=== PATIENT | female | born 2000 | race Caucasian/White ===

== ENCOUNTER 2021-01-02 15:12 | Outpatient (CLI) | payer OTHER ==
[~2021-01-02] VITALS: Ht 160 cm; Wt 67.5 kg
[2021-01-02 15:08] VITALS: BP 125/63
[2021-01-02 15:15] VITALS: BP 125/63
--- NOTE | 2021-01-03 07:41 | Physician Query-Final Dx ---
JAIRO GRACE 01/03/21 0741: Clinic Account Progress/Dx Physician Query: Please give diagnosis Please include # weeks gestation Date of Service Jan 02, 2021 at 15:12 MONA GALLAGHER MD 01/05/21 1812: Clinic Account Progress/Dx DIAGNOSIS: Diagnosis 1. IUP in 3rd trimester non labor 2. Uterine irritability JAIRO GRACE Jan 03, 2021 07:41 MONA GALLAGHER MD Jan 05, 2021 18:12
== END 2021-01-02 15:45 | disposition home or self-care (01) ==
LOC: WSo 15:12 → LDRP 15:13 → WSo 15:45
PROVIDERS: ATTEND Family Medicine
DX: O60.03 Preterm labor without delivery, third trimester (principal); O62.4 Hypertonic, incoordinate, and prolonged uterine contractions; Z3A.00 Weeks of gestation of pregnancy not specified
CPT/HCPCS: 99213

== ENCOUNTER 2021-01-13 04:52 | Outpatient (CLI) | payer SELFPAY ==
[~2021-01-13] VITALS: Ht 160 cm; Wt 68.1 kg
[2021-01-13] MEDS ORDERED: PREN-142 PO (05:00)
[2021-01-13 05:10] VITALS: BP 122/59
[2021-01-13 05:18] LABS: BILIRUBIN,URINE NEGATIVE (NEGATIVE); COLOR,URINE YELLOW; GLUCOSE, URINE (UA) NEGATIVE (NEGATIVE); KETONES,URINE NEGATIVE (NEGATIVE); LEUKOCYTE ESTERASE ,URINE TRACE (NEGATIVE); NITRITE,URINE POSITIVE (NEGATIVE); PH,URINE 6.5 (5-9); PROTEIN,URINE 3+ (NEGATIVE)
[2021-01-13 05:34] VITALS: BP 122/59
[2021-01-13 05:36] LABS: CLARITY,URINE CLOUDY
[2021-01-13 05:37] LABS: BACTERIA,URINE MODERATE /HPF; WBC,URINE TNTC /HPF
[2021-01-13] MEDS ORDERED: cefTRIAXone 1,000 MG VIAL ONE (05:52)
[2021-01-13] MEDS ORDERED: WATER (STERILE) FOR INJECTION 10 ML ONE (05:55)
[2021-01-13] MEDS ORDERED: CEFD300C3 PO (05:58)
[2021-01-13] MEDS ORDERED: LACTATED RINGERS 1,000 ML IV SCH (06:00)
[2021-01-13] MEDS ORDERED: cefTRIAXone 1,000 MG in WATER (STERILE) FOR INJECTION 10 ML IV ONE (06:00)
[2021-01-13 07:01] VITALS: BP 122/59
--- NOTE | 2021-01-14 07:46 | Physician Query-Final Dx ---
JAIRO GRACE 01/14/21 0746: Clinic Account Progress/Dx Physician Query: Please give diagnosis Please include # weeks gestation Date of Service Jan 13, 2021 at 04:52 MORGAN CASILLAS MD 01/14/21 2215: Clinic Account Progress/Dx DIAGNOSIS: Diagnosis Third trimester 35 week gestation Abdominal pain in JAIRO GRACE Jan 14, 2021 07:46 MORGAN CASILLAS MD Jan 14, 2021 22:15
== END 2021-01-13 07:05 ==
LOC: WSo 04:52 → LDRP 04:52 → WSo 07:05
PROVIDERS: ATTEND Family Medicine
DX: O62.9 Abnormality of forces of labor, unspecified (principal); O26.893 Other specified pregnancy related conditions, third trimester; Z3A.35 35 weeks gestation of pregnancy
CPT/HCPCS: 81000; 87088; 96361; 96374; G0463; 99214

== ENCOUNTER 2021-02-16 13:00 | Inpatient (IN) | payer OTHER ==
[~2021-02-16] VITALS: Ht 160 cm; Wt 72.9 kg
[~2021-02-16 13:00] MED LIST: CEFD300C3 PO; PREN-142 PO
[2021-02-16] MEDS ORDERED: MINERAL OIL CONCENTRATE 99.9% 15 ML UDC TOP PRN (20:15)
[2021-02-16] MEDS ORDERED: ZOLPIDEM 5 MG (AMBIEN) TAB PO ONE (20:15)
[2021-02-16] MEDS ORDERED: LACTATED RINGERS 1,000 ML IV SCH (20:15)
[2021-02-16] MEDS ORDERED: TERBUTALINE INJ 1 MG/ML (BRETHINE) AMP SC PRN (20:15)
[2021-02-16 20:20] VITALS: BP 111/69
[2021-02-16 20:56] LABS: BILIRUBIN,URINE NEGATIVE (NEGATIVE); CLARITY,URINE CLEAR; COLOR,URINE YELLOW; GLUCOSE, URINE (UA) NEGATIVE (NEGATIVE); KETONES,URINE NEGATIVE (NEGATIVE); LEUKOCYTE ESTERASE ,URINE NEGATIVE (NEGATIVE); NITRITE,URINE NEGATIVE (NEGATIVE); PROTEIN,URINE NEGATIVE (NEGATIVE)
[2021-02-16 20:57] LABS: BASOPHILS % (AUTO) 0 % (0-10); EOSINOPHILS % (AUTO) 0 % (0-10); HEMATOCRIT 31 % (35-52); HEMOGLOBIN 9.9 g/dL (11.5-16.0); LYMPHOCYTES # (AUTO) 2.4 10^3/uL (1.0-4.0); LYMPHOCYTES % (AUTO) 21 % (12-44); MEAN CORPUSCULAR HEMOGLOBIN 25 pg (25-34); MEAN CORPUSCULAR HGB CONC 32 g/dL (32-36); MEAN CORPUSCULAR VOLUME 78 fL (80-99); MEAN PLATELET VOLUME 12.2 fL (9.0-12.2); MONOCYTES # (AUTO) 0.6 10^3/uL (0.0-1.0); MONOCYTES % (AUTO) 5 % (0-12); NEUTROPHILS # (AUTO) 8.4 10^3/uL (1.8-7.8); NEUTROPHILS % (AUTO) 73 % (42-75); PLATELET COUNT 294 10^3/uL (130-400); WHITE BLOOD COUNT 11.6 10^3/uL (4.3-11.0)
[2021-02-16 21:00] VITALS: BP 111/69
[2021-02-16 21:03] LABS: AMORPHOUS SEDIMENT,UR MOD AMOR URATES /LPF; BACTERIA,URINE TRACE /HPF; WBC,URINE 0-2 /HPF
[2021-02-16] MEDS: D5 LR IV SOLUTION 1,000 ML IV SCH (21:19)
[2021-02-16] MEDS ORDERED: ZOLPIDEM 5 MG (AMBIEN) TAB ONE (22:40)
[2021-02-16 23:00] VITALS: BP 116/58
[2021-02-16 23:14] VITALS: BP 116/58
[2021-02-17] VITALS (85 sets, daily range): BP systolic 90–144; BP diastolic 49–103
[2021-02-17] MEDS: D5 LR IV SOLUTION 1,000 ML IV SCH ×3 (05:01→17:58)
[2021-02-17] MEDS ORDERED: fentaNYL 2 mcg/ml BUPIVA 0.125 100 ML ONE (07:55)
[2021-02-17] MEDS ORDERED: fentaNYL INJ 100 MCG/2 ML AMP ONE (08:22)
[2021-02-17] MEDS ORDERED: BUPIVACAINE 0.25% 30 ML (SENSORCAINE) VIAL ONE (08:22)
[2021-02-17] MEDS: fentaNYL 2 mcg/ml BUPIVA 0.125 100 ML IV SCH ×2 (08:43→18:16)
[2021-02-17] MEDS ORDERED: NALOXONE 0.4 MG/ML 1 ML (NARCAN) VIAL IV PRN (09:00)
[2021-02-17] MEDS ORDERED: LACTATED RINGERS 1,000 ML IV ONE (09:00)
[2021-02-17] MEDS ORDERED: CATHETER FLUSH 10 ML SYR IV PRN (09:00)
[2021-02-17] MEDS: OXYTOCIN PRE-MIX DRIP 500 ML IV SCH ×4 (09:17→21:53)
--- NOTE | 2021-02-17 13:33 | History & Physical-OB ---
OB - Chief Complaint & HPI Date/Time Date of Admission: Date of Admission: Feb 16, 2021 at 20:03 Date seen by a Provider: Feb 17, 2021 Time Seen by a Provider: 08:45 Chief Complaint/History OB-Reason for Admission/Chief: Induction of Labor Hx : 1 Expected Date of Delivery: Feb 13, 2021 Gestational Age in Weeks: 40 Gestational Age in Days: 3 Indication for induction: post dates Other O+, Ab neg, Rub Imm HIV/RPR/HepB/C NR Normal 1 hr GTT GBS neg Allergies and Home Medications Allergies Coded Allergies: No Known Drug Allergies (Unverified , 01/13/21) Home Medications Vit No.124/Iron/FA 1 Each Tablet, 1 EACH PO DAILY, (Reported) Last Action: Reviewed Patient Home Medication List Home Medication List Reviewed: Yes OB - History Hx of Present Care: Yes Ultrasounds: Normal mid trimester US Obstetrical Complications: None Medical Complications: None Obstetrical History Hx : 1 Number of Living Children: 0 Patient Past Medical History N/A Social History/Family History 2nd Hand Smoke Exposure: No Immunizations Tetanus Booster (TDap): Less than 5yrs RPR/VDRL: Negative GBS Status: Negative HBsAG: Negative OB - Admission Exam Physical Exam Vitals: Vital Signs 02/17/21 02/17/21 12:10 12:21 Temp 36.5 Pulse 88 Resp 18 B/P (MAP) 110/67 (81) Pulse Ox 100 O2 Delivery Room Air HEENT: NCAT Heart: Rhythm Normal Lungs: Clear Abdomen: Gravid Cervical Dilatation: 4cm Effacement: 100% Station: -2 Membranes: Intact Heart Rate: 130's Accelerations: Accelerations Present Decelerations: Variable Decelerations Short Term Variability: Present Mcc Variability: Average (6-25) Contractions on Admission: < 5 Minutes Apart Intensity: Firm Hardin Scoring Tool (Modified) Dilation (cm): 1-2cm (1) Effacement (%): 51-79% (2) Descent/Station: -2 (1) Cervix Consistency: Medium(1) Cervix Position: Middle/Mid-Position (1) Hardin Score: 6 Labs Laboratory Tests Test 02/16/21 20:35 Range/Units White Blood Count 11.6 H 4.3-11.0 10^3/uL Red Blood Count 3.96 3.80-5.11 10^6/uL Hemoglobin 9.9 L 11.5-16.0 g/dL Hematocrit 31 L 35-52 % Mean Corpuscular Volume 78 L 80-99 fL Mean Corpuscular Hemoglobin 25 25-34 pg Mean Corpuscular Hemoglobin Concent 32 32-36 g/dL Red Cell Distribution Width 15.1 H 10.0-14.5 % Platelet Count 294 130-400 10^3/uL Mean Platelet Volume 12.2 9.0-12.2 fL Immature Granulocyte % (Auto) 1 % Neutrophils (%) (Auto) 73 42-75 % Lymphocytes (%) (Auto) 21 12-44 % Monocytes (%) (Auto) 5 0-12 % Eosinophils (%) (Auto) 0 0-10 % Basophils (%) (Auto) 0 0-10 % Neutrophils # (Auto) 8.4 H 1.8-7.8 10^3/uL Lymphocytes # (Auto) 2.4 1.0-4.0 10^3/uL Monocytes # (Auto) 0.6 0.0-1.0 10^3/uL Eosinophils # (Auto) 0.0 0.0-0.3 10^3/uL Basophils # (Auto) 0.0 0.0-0.1 10^3/uL Immature Granulocyte # (Auto) 0.1 0.0-0.1 10^3/uL Urine Color YELLOW Urine Clarity CLEAR Urine pH 6.0 5-9 Urine Specific [place] >=1.030 1.016-1.022 Urine Protein NEGATIVE NEGATIVE Urine Glucose (UA) NEGATIVE NEGATIVE Urine Ketones NEGATIVE NEGATIVE Urine Nitrite NEGATIVE NEGATIVE Urine Bilirubin NEGATIVE NEGATIVE Urine Urobilinogen 0.2 < = 1.0 MG/DL Urine Leukocyte Esterase NEGATIVE NEGATIVE Urine RBC (Auto) NEGATIVE NEGATIVE Urine RBC NONE /HPF Urine WBC 0-2 /HPF Urine Squamous Epithelial Cells 5-10 /HPF Urine Crystals PRESENT H /LPF Urine Amorphous Sediment MOD MANN URATES H /LPF Urine Bacteria TRACE /HPF Urine Casts NONE /LPF Urine Mucus SMALL H /LPF Urine Culture Indicated NO OB - Assessment/Plan/Diagnosis Assessment Assessment: induction of labor Admission Dx Third Trimester 40 week gestation Admission Status: Inpatient Order (span 2 midnights) Reason for Inpatient Admission: Labor Plan Plan: Induction Other Plan 20 yo G1 @ 40.4 wga here for IOL for post dates Plan - Cytotec started last night - Epidural requested by patient, Anesthesia called - AROM clear 1232 - GBS neg - Continue with expectant management MORGAN CASILLAS MD Feb 17, 2021 13:33
[2021-02-17] MEDS ORDERED: ONDANSETRON 4 MG/2 ML (SDV) Z0FRAN IVP PRN (16:00)
[2021-02-17] MEDS ORDERED: ONDANSETRON 4 MG/2 ML (SDV) Z0FRAN ONE (16:45)
[2021-02-17] MEDS: CATHETER FLUSH 10 ML SYR IV SCH ×2 (17:24→21:28)
[2021-02-17] MEDS ORDERED: LIDOCAINE/EPI 2% 1:200,00 (XYLOCAINE) 20 ML VIAL ONE (19:57)
[2021-02-17] MEDS ORDERED: BENZOCAINE/MENTHOL (DERMOPLAST) 56 ML CAN TP PRN (22:00)
[2021-02-17] MEDS ORDERED: CATHETER FLUSH 10 ML SYR IV SCH (22:00)
[2021-02-17] MEDS ORDERED: WITCH HAZEL(TUCKS) 40 EA JAR TOP PRN (22:00)
[2021-02-17] MEDS ORDERED: MEASLES,MUMPS,RUBELLA 1 EA INJ SQ ONE (22:00)
--- NOTE | 2021-02-17 22:00 | OB Labor & Delivery Record ---
Vag Delivery Note Vag Delivery Note Date of Delivery: 02/17/21 Preoperative Diagnosis: Nan Bates is a (20 /Para 1 / , Gestational Age (wks)40.4 here for IOL for post dates Postoperative Diagnosis: Same Surgeon: MORGAN CASILLAS Cocoa Bean Roaster: None Anesthesia: Epidural Delivery Type: @ 2113 Findings: Viable female infant, apgars 8/9, weight 7#12, 3520 grams Lacerations: bilateral labial laceration Intact placenta with 3 vessel cord. No nuchal cord, body cord or shoulder dystocia Estimated Blood Loss: 100 ml Complications: None Condition: Stable Description of Procedure: The patient is a 20 year old female who presented for IOL. She was admitted and informed consent was obtained. Her labor course was unremarkable. She progressed to complete dilatation and began to push. She was then set up for delivery. The infant's head was delivered atraumatically in the KELLEY position. The shoulders and remainder of the infant's body were then delivered without difficulty. Upon delivery, the head was held below the level of the perineum and the mouth and nares were bulb suctioned. The cord was doubly clamped and cut by delivering provider and the was placed on maternal abdomen and attended to by the pediatric staff. An intact placenta with 3-vessel cord delivered via Joyce and there was found to be minimal bleeding.~ Vigorous fundal massage was performed and the fundus was found to be firm. IV oxytocin was given. Examination of the vagina and perineum revealed bilateral labial lacerations repaired in the usual fashion with 3-0 vicryl suture. Following the repair, sponge, instrument and needle counts were correct. Mom and baby were both in stable condition in the labor suite. Vitals - Labs Vital Signs - I&O Vital Signs Date Time Temp Pulse Resp B/P (MAP) Pulse Ox O2 Delivery O2 Flow Rate FiO2 02/17/21 20:30 98 18 103/55 (71) 100 Room Air 02/17/21 20:15 87 18 135/64 (87) 100 Room Air 02/17/21 20:00 71 18 114/55 (74) 100 Room Air 02/17/21 19:45 36.0 98 18 125/67 (86) 100 Room Air 02/17/21 19:35 89 18 140/81 (100) 100 Room Air 02/17/21 19:30 84 18 122/63 (82) 100 Room Air 02/17/21 19:20 81 18 122/64 (83) 100 Room Air 02/17/21 19:15 95 18 132/58 (82) 100 Room Air 02/17/21 19:10 84 18 134/63 (86) 100 Room Air 02/17/21 19:05 77 18 128/60 (82) 100 Room Air 02/17/21 19:00 92 18 132/103 (113) 100 Room Air 02/17/21 18:55 79 18 112/60 (77) 99 Room Air 02/17/21 18:50 79 18 128/60 (82) 100 Room Air 02/17/21 18:43 86 18 127/59 (81) 100 Room Air 02/17/21 18:42 35.9 02/17/21 18:40 80 18 127/58 (81) 100 Room Air 02/17/21 18:37 72 18 129/64 (85) 100 Room Air 02/17/21 18:28 93 18 138/84 (102) 100 Room Air 02/17/21 18:14 85 18 116/62 (80) 99 Room Air 02/17/21 18:08 86 18 121/60 (80) 100 Room Air 02/17/21 17:51 79 18 133/65 (87) 93 Room Air 02/17/21 17:36 85 18 109/62 (78) 100 Room Air 02/17/21 17:21 91 18 129/60 (83) 100 Room Air 02/17/21 17:07 91 18 127/59 (81) 100 Room Air 02/17/21 16:50 96 18 119/66 (83) 99 Room Air 02/17/21 16:40 36.4 02/17/21 16:37 86 18 112/60 (77) 100 Room Air 02/17/21 16:31 80 18 123/57 (79) 100 Room Air 02/17/21 16:20 77 18 100/49 (66) 100 Room Air 02/17/21 16:15 36.5 02/17/21 16:05 73 18 96/53 (67) 100 Room Air 02/17/21 15:52 63 18 90/52 (65) 100 Room Air 02/17/21 15:37 83 18 125/58 (80) 100 Room Air 02/17/21 15:20 70 18 109/55 (73) 100 Room Air 02/17/21 15:18 36.6 02/17/21 15:07 66 18 99/54 (69) 100 Room Air 02/17/21 14:52 63 18 105/54 (71) 100 Room Air 02/17/21 14:48 36.4 02/17/21 14:35 85 18 120/57 (78) 100 Room Air 02/17/21 14:21 73 18 132/61 (84) 100 Room Air 02/17/21 14:05 78 18 118/68 (85) 97 Room Air 02/17/21 14:02 36.3 02/17/21 13:51 72 18 104/53 (70) 99 Room Air 02/17/21 13:38 82 18 115/54 (74) 99 Room Air 02/17/21 13:22 89 18 116/59 (78) 100 Room Air 02/17/21 13:06 83 18 120/61 (80) 100 Room Air 02/17/21 12:50 79 18 111/62 (78) 100 Room Air 02/17/21 12:35 36.6 83 18 106/62 (77) 100 Room Air 02/17/21 12:21 88 18 110/67 (81) 100 Room Air 02/17/21 12:10 36.5 02/17/21 12:06 72 18 115/57 (76) 99 Room Air 02/17/21 11:50 84 18 111/57 (75) 99 Room Air 02/17/21 11:37 92 18 118/59 (78) 100 Room Air 02/17/21 11:23 88 18 126/58 (80) 99 Room Air 02/17/21 11:08 93 18 118/65 (82) 100 Room Air 02/17/21 10:52 88 18 106/60 (75) 100 Room Air 02/17/21 10:37 90 18 117/63 (81) 100 OxyMask 15.00 02/17/21 10:20 77 18 117/63 (81) 100 OxyMask 15.00 02/17/21 10:05 73 18 119/61 (80) 100 OxyMask 15.00 02/17/21 09:50 71 18 108/60 (76) 100 OxyMask 15.00 02/17/21 09:36 82 18 109/60 (76) 100 Non Rebreather 15.00 02/17/21 09:21 73 18 103/56 (72) 96 Room Air 02/17/21 09:20 88 18 107/60 (76) 02/17/21 09:02 124 18 119/82 (94) 99 Room Air 02/17/21 08:59 123 18 134/82 (99) 99 Room Air 02/17/21 08:56 87 18 118/60 (79) 98 Room Air 02/17/21 08:53 97 18 113/60 (77) 99 Room Air 02/17/21 08:50 118 18 117/63 (81) 02/17/21 08:47 96 18 116/60 (78) 99 Room Air 02/17/21 08:44 90 18 117/61 (79) 98 Room Air 02/17/21 08:41 36.2 87 18 122/63 (82) 98 Room Air 02/17/21 08:38 69 18 122/58 (79) 99 Room Air 02/17/21 08:35 80 18 131/60 (83) 99 Room Air 02/17/21 08:32 76 18 137/69 (91) 99 Room Air 02/17/21 08:30 95 18 129/66 (87) Room Air 02/17/21 08:27 77 18 129/74 (92) 99 Room Air 02/17/21 07:12 36.0 02/17/21 07:00 87 18 120/68 (85) Room Air 02/17/21 06:00 36.2 18 Room Air 02/17/21 05:00 78 18 123/81 (95) Room Air 02/17/21 04:00 18 Room Air 02/17/21 03:00 18 Room Air 02/17/21 02:00 92 18 123/60 (81) Room Air 02/17/21 01:00 113 18 135/83 (100) Room Air 02/17/21 00:00 94 18 102/50 (67) Room Air 02/16/21 23:00 36.2 96 18 116/58 (77) Room Air 02/16/21 22:00 18 Room Air I & O 02/17/21 07:00 Intake Total 2000 ml Balance 2000 ml MORGAN CASILLAS MD Feb 17, 2021 22:00
[2021-02-17] MEDS: ACETAMINOPHEN 500 MG TAB (TYLENOL) PO SCH (22:15)
[2021-02-17] MEDS: IBUPROFEN 600 MG (MOTRIN) TAB PO SCH (22:15)
[2021-02-18] VITALS (8 sets, daily range): BP systolic 101–124; BP diastolic 55–73
[2021-02-18] MEDS: IBUPROFEN 600 MG (MOTRIN) TAB PO SCH ×3 (05:20→17:45)
[2021-02-18] MEDS: ACETAMINOPHEN 500 MG TAB (TYLENOL) PO SCH ×2 (05:20→15:25)
[2021-02-18 05:57] LABS: BASOPHILS % (AUTO) 0 % (0-10); EOSINOPHILS % (AUTO) 0 % (0-10); HEMATOCRIT 29 % (35-52); HEMOGLOBIN 8.8 g/dL (11.5-16.0); LYMPHOCYTES # (AUTO) 2.2 10^3/uL (1.0-4.0); LYMPHOCYTES % (AUTO) 12 % (12-44); MEAN CORPUSCULAR HEMOGLOBIN 24 pg (25-34); MEAN CORPUSCULAR HGB CONC 30 g/dL (32-36); MEAN CORPUSCULAR VOLUME 80 fL (80-99); MEAN PLATELET VOLUME 12.2 fL (9.0-12.2); MONOCYTES # (AUTO) 1.1 10^3/uL (0.0-1.0); MONOCYTES % (AUTO) 6 % (0-12); NEUTROPHILS # (AUTO) 14.7 10^3/uL (1.8-7.8); NEUTROPHILS % (AUTO) 81 % (42-75); PLATELET COUNT 216 10^3/uL (130-400)
[2021-02-18] MEDS: PRENATAL VITAMIN 1 EA TAB PO SCH (08:07)
[2021-02-18] MEDS: DOCUSATE SODIUM 100 MG (COLACE) CAP PO SCH ×2 (08:07→21:04)
[2021-02-18] MEDS ORDERED: OXYTOCIN PRE-MIX DRIP 0 ML IV ONE (09:24)
--- NOTE | 2021-02-18 12:07 | Anesthesia-Regional Post-Op ---
Regional Patient Condition Mental Status: Alert, Oriented x3 Circulation: Same as Pre-Op Headache: Absent Sensation: Full Recovery Motor Block: Absent Post Op Complications Complications None Follow Up Care/Instructions Patient Instructions None needed. Anesthesia/Patient Condition Patient is doing well, no complaints, stable vital signs, no apparent adverse anesthesia problems. CATRACHO BAEZA DO Feb 18, 2021 12:07
--- NOTE | 2021-02-18 21:50 | Postpartum Progress Note ---
Note Note Day # 1 Subjective: Patient is without complaints. Ambulating, voiding. Tolerating a regular diet without nausea or vomiting. Normal lochia. Pain is well controlled with oral pain medications. Bottle feeding. Objective: Physical Exam: General - Alert and oriented, no apparent distress Abdomen - Soft, appropriately tender to palpation, non-distended, fundus firm at umbilicus Extremities - no edema, negative Terrell's bilaterally Assessment: 20 yo G1 now P1 post- day # 1, status post uncomplicated vaginal delivery. Recovering well, hemodynamically stable Plan: Routine care. Encourage breast feeding, patient desires bottle feeding Encourage ambulation. Ferrous sulfate supplementation, Hgb 8.8 Plan for discharge tomorrow and f.u 6 weeks with [facility] Vitals - Labs Vital Signs - I&O Vital Signs Date Time Temp Pulse Resp B/P (MAP) Pulse Ox O2 Delivery O2 Flow Rate FiO2 02/18/21 21:04 36.3 84 18 118/62 (80) 99 Room Air 02/18/21 15:45 36.6 86 18 101/56 (71) 99 Room Air 02/18/21 11:40 36.7 87 18 124/65 (84) 97 Room Air 02/18/21 08:51 36.6 79 18 122/73 (89) 98 Room Air 02/18/21 05:20 36.1 77 18 103/56 (72) 99 Room Air 02/18/21 01:15 36.8 78 18 110/61 (77) Room Air 02/18/21 00:45 80 18 107/55 (72) Room Air 02/18/21 00:15 85 18 105/58 (74) Room Air 02/17/21 23:45 36.8 87 18 123/56 (78) Room Air 02/17/21 23:15 75 18 123/61 (81) Room Air 02/17/21 22:45 36.9 78 18 113/56 (75) Room Air 02/17/21 22:30 87 18 116/59 (78) Room Air 02/17/21 22:15 36.6 92 18 125/66 (85) Room Air 02/17/21 22:00 92 18 119/58 (78) Room Air I & O 02/18/21 07:00 Intake Total 4625 ml Balance 4625 ml Labs Laboratory Tests 02/18/21 05:32: White Blood Count 18.0H, Red Blood Count 3.62L, Hemoglobin 8.8L, Hematocrit 29L, Mean Corpuscular Volume 80, Mean Corpuscular Hemoglobin 24L, Mean Corpuscular Hemoglobin Concent 30L, Red Cell Distribution Width 15.3H, Platelet Count 216, Mean Platelet Volume 12.2, Immature Granulocyte % (Auto) 1, Neutrophils (%) (Auto) 81H, Lymphocytes (%) (Auto) 12, Monocytes (%) (Auto) 6, Eosinophils (%) (Auto) 0, Basophils (%) (Auto) 0, Neutrophils # (Auto) 14.7H, Lymphocytes # (Auto) 2.2, Monocytes # (Auto) 1.1H, Eosinophils # (Auto) 0.0, Basophils # (Auto) 0.0, Immature Granulocyte # (Auto) 0.1 MORGAN CASILLAS MD Feb 18, 2021 21:50
[2021-02-19 01:40] VITALS: BP 119/60
[2021-02-19] MEDS: IBUPROFEN 600 MG (MOTRIN) TAB PO SCH ×2 (01:40→08:35)
[2021-02-19] MEDS: ACETAMINOPHEN 500 MG TAB (TYLENOL) PO SCH (01:41)
[2021-02-19] MEDS ORDERED: FERROUS SULF 325 MG (IRON) TAB PO SCH (08:00)
[2021-02-19] MEDS: PRENATAL VITAMIN 1 EA TAB PO SCH (08:34)
[2021-02-19] MEDS: DOCUSATE SODIUM 100 MG (COLACE) CAP PO SCH (08:34)
[2021-02-19 08:38] VITALS: BP 113/64
--- NOTE | 2021-02-19 09:22 | Discharge Summary ---
Diagnosis/Chief Complaint Date of Admission Feb 16, 2021 at 20:03 Date of Discharge 02/19/2021 Admission Diagnosis Admission Diagnosis Third Trimester 40 week gestation Discharge Diagnosis Term delivery of female infant Discharge Summary-Simple/Stand Discharge Physical Examination Allergies: Coded Allergies: No Known Drug Allergies (Unverified , 01/13/21) Vitals & I&Os Vital Sign - Last 12Hours Date Time Temp Pulse Resp B/P (MAP) Pulse Ox O2 Delivery O2 Flow Rate FiO2 02/19/21 01:40 36.3 78 18 119/60 (79) 98 Room Air 02/17/21 10:37 15.00 General Appearance: Alert, Oriented X3, Cooperative, No Acute Distress HEENT: Mucous Memb Moist/[place] Respiratory: Clear to Auscultation, Normal Air Movement Cardiovascular: Regular Rate, No Murmurs Abdominal: Normal Bowel Sounds, Soft, Other (fundus firm and below umbilicus) Extremities: No Edema, No Tenderness/Swelling Psych/Mental Status: Mental Status NL, Mood NL Hospital Course Was the Problem List Reviewed?: Yes See final discharge diagnosis. Discussion & Recommendations 20 yo G1 now P1 delivered term female via uncomplicated . Bottle feeding. Discharge Condition at discharge stable Instructions to patient/family Please see electronic discharge instructions given to patient. Discharge Medications Reviewed and agree with Discharge Medication list on patient's Discharge Instruction sheet Copy Copies To 1: MORGAN CASILLAS MD, HOLLY R MD Feb 19, 2021 09:22
[2021-02-19] MEDS ORDERED: FERR325T24 PO (09:24)
[2021-02-19] MEDS ORDERED: IBUP-844 PO (09:24)
--- NOTE | 2021-02-19 09:25 | Discharge Summary ---
Discharge Inst-Women's Serv Reconcile Patient Problems Problems Reviewed?: Yes Depart Medications New, Converted or Re-Newed RX: Transmitted to Pharmacy New Medications: Ferrous Sulfate (Ferosul) 325 Mg Tablet 325 MG PO BID WITH MEALS, #60 TAB Ibuprofen (Ibu) 600 Mg Tablet 600 MG PO Q6HR, #90 TAB Continued Medications: Vit No.124/Iron/FA ( Vitamin Tablet) 1 Each Tablet 1 EACH PO DAILY, TAB Follow Up/Instructions Goal/Follow Up: 6 week f.u with [facility]ie Activity Activity: Activity as Tolerated Driving Instructions: You May Drive NO SMOKING: NO SMOKING Nothing Inside Vagina: No Douching, No [place], No Tampons Diet Discharge Diet: No Restrictions Symptoms to Report to DrSandor: Swelling Increased, Bleeding Excessive, Fever Over 101 Degrees F, Shortness of Breath For Any Problems or Questions: Contact Your Physician Copies To 1: MORGAN CASILLAS MD, HOLLY R MD Feb 19, 2021 09:25
== END 2021-02-19 10:20 | disposition home or self-care (01) | DRG 807 ==
LOC: LDRP 20:03
PROVIDERS: ADMIT Family Medicine; ATTEND Family Medicine
PROC: 3E0DXGC Introduction of Other Therapeutic Substance into Mouth and Pharynx, External Approach (ICD-10-PCS; 2021-02-16)
PROC: 10E0XZZ Delivery of Products of Conception, External Approach (ICD-10-PCS; principal; 2021-02-17)
PROC: 0UQMXZZ Repair Vulva, External Approach (ICD-10-PCS; 2021-02-17)
DX: O48.0 Post-term pregnancy (principal); Z37.0 Single live birth; O70.0 First degree perineal laceration during delivery; Z3A.40 40 weeks gestation of pregnancy
CPT/HCPCS: 36415; 81000; 85025; 86850; 86900; 86901

== ENCOUNTER 2022-09-04 21:07 | Outpatient (CLI) | payer MEDICAID ==
[~2022-09-04] VITALS: Ht 160.2 cm; Wt 70.3 kg
[~2022-09-04 21:07] MED LIST changes: +FERR325T24 PO; +IBUP-844 PO
[2022-09-04 21:30] VITALS: BP 118/67
[2022-09-04 21:41] LABS: BILIRUBIN,URINE NEGATIVE (NEGATIVE); CLARITY,URINE CLEAR; COLOR,URINE DARK YELLOW; GLUCOSE, URINE (UA) NEGATIVE (NEGATIVE); KETONES,URINE 3+ (NEGATIVE); LEUKOCYTE ESTERASE ,URINE NEGATIVE (NEGATIVE); NITRITE,URINE NEGATIVE (NEGATIVE); PROTEIN,URINE NEGATIVE (NEGATIVE)
[2022-09-04 21:50] LABS: AMORPHOUS SEDIMENT,UR FEW AMOR URATES /LPF; BACTERIA,URINE MODERATE /HPF; RBC,URINE RARE /HPF; WBC,URINE RARE /HPF
== END 2022-09-04 23:45 | disposition home or self-care (01) ==
LOC: LDRP 21:07 → WSo 21:07
PROVIDERS: ATTEND Family Medicine
DX: O62.9 Abnormality of forces of labor, unspecified (principal); Z3A.39 39 weeks gestation of pregnancy
CPT/HCPCS: 81000

== ENCOUNTER 2022-09-06 09:17 | Inpatient (IN) | payer MEDICAID ==
[2022-09-06] VITALS (13 sets, daily range): BP systolic 103–127; BP diastolic 57–75
[~2022-09-06] VITALS: Ht 160 cm; Wt 69.4 kg
[2022-09-06] MEDS ORDERED: LACTATED RINGERS 1,000 ML IV SCH (09:21)
[2022-09-06] MEDS ORDERED: MINERAL OIL 30 ML UDC TOP PRN (09:45)
[2022-09-06] MEDS ORDERED: D5 LR IV SOLUTION 1,000 ML IV SCH (09:45)
[2022-09-06] MEDS ORDERED: MEPIVACAINE (CARBOCAINE) 2% 50 ML VIAL ONE (09:50)
[2022-09-06] MEDS ORDERED: OXYTOCIN PRE-MIX DRIP 500 ML IV ONE (09:51)
[2022-09-06 09:53] LABS: BASOPHILS % (AUTO) 0 % (0-10); EOSINOPHILS % (AUTO) 0 % (0-10); HEMATOCRIT 33 % (35-52); HEMOGLOBIN 10.6 g/dL (11.5-16.0); LYMPHOCYTES # (AUTO) 1.3 10^3/uL (1.0-4.0); LYMPHOCYTES % (AUTO) 18 % (12-44); MEAN CORPUSCULAR HEMOGLOBIN 23 pg (25-34); MEAN CORPUSCULAR HGB CONC 32 g/dL (32-36); MEAN CORPUSCULAR VOLUME 73 fL (80-99); MEAN PLATELET VOLUME 12.3 fL (9.0-12.2); MONOCYTES # (AUTO) 0.8 10^3/uL (0.0-1.0); MONOCYTES % (AUTO) 12 % (0-12); NEUTROPHILS # (AUTO) 4.8 10^3/uL (1.8-7.8); NEUTROPHILS % (AUTO) 69 % (42-75); PLATELET COUNT 184 10^3/uL (130-400)
--- NOTE | 2022-09-06 10:00 | History & Physical-OB ---
OB - Chief Complaint & HPI Date/Time Date of Admission: Date of Admission: Sep 06, 2022 at 09:38 Date seen by a Provider: Sep 06, 2022 Time Seen by a Provider: 09:50 Chief Complaint/History OB-Reason for Admission/Chief: Onset of Labor Hx : 2 Hx Para: 1 Expected Date of Delivery: Sep 08, 2022 Gestational Age in Weeks: 39 Gestational Age in Days: 5 Admission Nurse Assessment Rev: Yes History of Labs GBS negative Allergies and Home Medications Allergies Coded Allergies: No Known Drug Allergies (Unverified , 01/13/21) Patient Home Medication List Home Medication List Reviewed: Yes Vit No.124/Iron/FA ( Vitamin Tablet) 1 Each Tablet, 1 EACH PO DAILY, (Reported) Entered as Reported by: PATRICIA KOENIG on 01/13/21 0500 Discontinued Medications Ferrous Sulfate (Ferosul) 325 Mg Tablet, 325 MG PO BID WITH MEALS Discontinued Reason: No Longer Taking Prescribed by: MORGAN CASILLAS on 02/19/21923 Ibuprofen (Ibu) 600 Mg Tablet, 600 MG PO Q6HR Discontinued Reason: No Longer Taking Prescribed by: MORGAN CASILLAS on 02/19/21923 OB - History Hx of Present Care: Yes Ultrasounds: Normal mid trimester US Obstetrical Complications: None Medical Complications: None Patient Past Medical History N/A Social History/Family History 2nd Hand Smoke Exposure: No Immunizations Tetanus Booster (TDap): Less than 5yrs OB - Admission Exam Physical Exam HEENT: Moist Membranes Heart: Rhythm Normal Lungs: Clear Abdomen: Gravid Cervical Dilatation: 7cm (on presentation) Effacement: 100% Station: -1 Membranes: Intact Accelerations: Accelerations Present Short Term Variability: Present Usp Variability: Average (6-25) Contractions on Admission: < 5 Minutes Apart Intensity: Moderate Labs Laboratory Tests Test 09/06/22 09:35 Range/Units White Blood Count 7.0 4.3-11.0 10^3/uL Red Blood Count 4.56 3.80-5.11 10^6/uL Hemoglobin 10.6 L 11.5-16.0 g/dL Hematocrit 33 L 35-52 % Mean Corpuscular Volume 73 L 80-99 fL Mean Corpuscular Hemoglobin 23 L 25-34 pg Mean Corpuscular Hemoglobin Concent 32 32-36 g/dL Red Cell Distribution Width 16.3 H 10.0-14.5 % Platelet Count 184 130-400 10^3/uL Mean Platelet Volume 12.3 H 9.0-12.2 fL Immature Granulocyte % (Auto) 0 % Neutrophils (%) (Auto) 69 42-75 % Lymphocytes (%) (Auto) 18 12-44 % Monocytes (%) (Auto) 12 0-12 % Eosinophils (%) (Auto) 0 0-10 % Basophils (%) (Auto) 0 0-10 % Neutrophils # (Auto) 4.8 1.8-7.8 10^3/uL Lymphocytes # (Auto) 1.3 1.0-4.0 10^3/uL Monocytes # (Auto) 0.8 0.0-1.0 10^3/uL Eosinophils # (Auto) 0.0 0.0-0.3 10^3/uL Basophils # (Auto) 0.0 0.0-0.1 10^3/uL Immature Granulocyte # (Auto) 0.0 0.0-0.1 10^3/uL OB - Assessment/Plan/Diagnosis Assessment Assessment: active labor Admission Dx 1. IUP at term 39w5d in active labor Admission Status: Inpatient Order (span 2 midnights) Reason for Inpatient Admission: Delivery Plan Induction Method: MONA POPE MD Sep 06, 2022 10:00
--- NOTE | 2022-09-06 11:22 | OB Labor & Delivery Record ---
L&D History Date of Service Date of Service: Sep 06, 2022 History Expected Date of Delivery: Sep 08, 2022 Gestational Age in Weeks: 39 Hx : 2 Hx Para: 2 Complications Events: Routine care Operative Indications (Cesarea: N/A-Vaginal Delivery Intrapartal Events: None L&D Stage1 Stage One Onset of Labor - Date: Sep 06, 2022 Onset of Labor - Time: 06:00 Monitors and Tracing Monitor Mode: External Monitor Accelerations: Uniform Monitor Decelerations: None Station: -1 Usp Variability: Average (6-10) Short Term Variability: Present Presentation: Vertex Vital Signs VS - Last 72 Hours, by Label 09/06/22 10:01 Temp 36.1 Pulse 52 Resp 18 Pulse Ox 100 O2 Delivery Room Air Signs of Distress by FHT Signs of Distress no Rupture of Membranes Spontaneous Ruture of Membrane: No Amniotic Membrane Rupture Time: 10:00 Amniotic Membrane Fluid Desc.: Meconium Stained Progress/Notes no iv pain meds due to rapid delivery L&D Stage2 Stage Two Stage II Date: Sep 06, 2022 Stage II Time: 10:11 Monitors and Tracing Monitor Mode: External Monitor Accelerations: Uniform Monitor Decelerations: None Seed Cleaner Operator Variability: Average (6-10) Position: Left Occiput Anterior Presentation: Vertex Signs of Distress by FHT Signs of Distress no Cord Descript/Complications Cord Vessel Description: 3 Vessels Delivery Type Infant Delivery Method: Spontaneous Vaginal Anterior Shoulder: Left Episiotomy/Perineal Laceration Laceraction(s)/Extensions: No Episiotomy Description: 1st degree Sutures Used: Vicryl Condition of Infant Delivery 1 minute Comment: 8 5 minute Comment: 9 Condition of Condition of : Living Exam: No Observed Abnormalities Resuscitation Resuscitation: N/A - Spontaneous Resp L&D Stage3 Stage Three Stage III Date: Sep 06, 2022 Stage III Time: 10:18 Pictocin Pitocin ml/hr: 125 Placenta Delivery Placenta Delivery: Spontaneous Delivery Summary Summary Estimated blood loss (mL): 100 Condition of Delivery Examined: Cervix Examined Post Hemorrhage: No Intervention Required none MONA GALLAGHER MD Sep 06, 2022 11:22
[2022-09-06] MEDS ORDERED: WITCH HAZEL(TUCKS) 40 EA JAR TOP PRN (11:30)
[2022-09-06] MEDS ORDERED: NALOXONE 0.4 MG/ML 1 ML (NARCAN) VIAL IV PRN (11:30)
[2022-09-06] MEDS ORDERED: TETANUS,DIPTH,PERTUSS P/F (BOOSTRIX) 0.5 ML VIAL IM ONE (11:30)
[2022-09-06] MEDS ORDERED: BENZOCAINE/MENTHOL (DERMOPLAST) 56 ML CAN TP PRN (11:30)
[2022-09-06] MEDS ORDERED: MEASLES,MUMPS,RUBELLA 1 EA INJ SQ ONE (11:30)
[2022-09-06] MEDS ORDERED: OXYTOCIN PRE-MIX DRIP 500 ML IV SCH (11:30)
[2022-09-06] MEDS: ACETAMINOPHEN 500 MG TAB (TYLENOL) PO SCH ×3 (11:54→23:23)
[2022-09-06] MEDS: IBUPROFEN 600 MG (MOTRIN) TAB PO SCH ×3 (11:54→23:23)
[2022-09-06] MEDS ORDERED: CATHETER FLUSH 10 ML SYR IV SCH ×2 (14:00)
[2022-09-06] MEDS: DOCUSATE SODIUM 100 MG (COLACE) CAP PO SCH (23:22)
[2022-09-07 04:30] VITALS: BP 118/72
[2022-09-07 05:13] LABS: BASOPHILS % (AUTO) 0 % (0-10); EOSINOPHILS % (AUTO) 0 % (0-10); HEMATOCRIT 31 % (35-52); HEMOGLOBIN 9.4 g/dL (11.5-16.0); LYMPHOCYTES # (AUTO) 2.2 10^3/uL (1.0-4.0); LYMPHOCYTES % (AUTO) 27 % (12-44); MEAN CORPUSCULAR HEMOGLOBIN 23 pg (25-34); MEAN CORPUSCULAR HGB CONC 31 g/dL (32-36); MEAN CORPUSCULAR VOLUME 75 fL (80-99); MEAN PLATELET VOLUME 12.3 fL (9.0-12.2); MONOCYTES # (AUTO) 0.5 10^3/uL (0.0-1.0); MONOCYTES % (AUTO) 7 % (0-12); NEUTROPHILS # (AUTO) 5.2 10^3/uL (1.8-7.8); NEUTROPHILS % (AUTO) 65 % (42-75); PLATELET COUNT 179 10^3/uL (130-400); WHITE BLOOD COUNT 8.1 10^3/uL (4.3-11.0)
[2022-09-07] MEDS: IBUPROFEN 600 MG (MOTRIN) TAB PO SCH ×2 (07:09→11:54)
[2022-09-07] MEDS: ACETAMINOPHEN 500 MG TAB (TYLENOL) PO SCH (07:09)
--- NOTE | 2022-09-07 08:01 | Discharge Summary ---
Diagnosis/Chief Complaint Date of Admission Sep 06, 2022 at 09:38 Date of Discharge Sep 07, 2022 Admission Diagnosis Admission Diagnosis 1. IUP at term 39 weeks gestation Discharge Diagnosis 1. IUP at term 39 weeks gestation Chief Complaint/HPI Chief Complaint/HPI 22 yo G2 now T2 L2 who initially presents to Women's services during the morning of Sep 06 in labor dilated to 7 cm. Discharge Summary-OBS Procedures 1. 2. Repair of minor perineal tear Discharge Physical Examination Allergies: Coded Allergies: No Known Drug Allergies (Unverified , 01/13/21) Vitals & I&Os Vital Sign - Last 12Hours Date Time Temp Pulse Resp B/P (MAP) Pulse Ox O2 Delivery O2 Flow Rate FiO2 09/07/22 04:30 36.7 82 16 118/72 (87) 99 Room Air General Appearance: Alert, No Acute Distress Respiratory: Clear to Auscultation Cardiovascular: Regular Rate Abdominal: Soft (with uterus firm) Hospital Course Was the Problem List Reviewed?: Yes Following delivery she underwent routine PP care orders. Hg in the am of 09/07 was 9.4 compared to admission of 10.6. Labs Laboratory Tests 09/06/22 09:35: White Blood Count 7.0, Red Blood Count 4.56, Hemoglobin 10.6L, Hematocrit 33L, Mean Corpuscular Volume 73L, Mean Corpuscular Hemoglobin 23L, Mean Corpuscular Hemoglobin Concent 32, Red Cell Distribution Width 16.3H, Platelet Count 184, Mean Platelet Volume 12.3H, Immature Granulocyte % (Auto) 0, Neutrophils (%) (Auto) 69, Lymphocytes (%) (Auto) 18, Monocytes (%) (Auto) 12, Eosinophils (%) (Auto) 0, Basophils (%) (Auto) 0, Neutrophils # (Auto) 4.8, Lymphocytes # (Auto) 1.3, Monocytes # (Auto) 0.8, Eosinophils # (Auto) 0.0, Basophils # (Auto) 0.0, Immature Granulocyte # (Auto) 0.0 09/07/22 05:05: White Blood Count 8.1, Red Blood Count 4.09, Hemoglobin 9.4L, Hematocrit 31L, Mean Corpuscular Volume 75L, Mean Corpuscular Hemoglobin 23L, Mean Corpuscular Hemoglobin Concent 31L, Red Cell Distribution Width 16.2H, Platelet Count 179, Mean Platelet Volume 12.3H, Immature Granulocyte % (Auto) 1, Neutrophils (%) (Auto) 65, Lymphocytes (%) (Auto) 27, Monocytes (%) (Auto) 7, Eosinophils (%) (Auto) 0, Basophils (%) (Auto) 0, Neutrophils # (Auto) 5.2, Lymphocytes # (Auto) 2.2, Monocytes # (Auto) 0.5, Eosinophils # (Auto) 0.0, Basophils # (Auto) 0.0, Immature Granulocyte # (Auto) 0.1 Discharge Instructions to patient/family Please see electronic discharge instructions given to patient. Discharge Medications Reviewed and agree with Discharge Medication list on patient's Discharge Instruction sheet MONA GALLAGHER MD Sep 07, 2022 08:00
--- NOTE | 2022-09-07 08:03 | Discharge Inst-Women's Service ---
Discharge Inst-Women's Serv Depart Medication/Instructions New, Converted or Re-Newed RX: Other Instructions May have OTC ibuprofen 200mg 2 or 3 every 6 hours if needed for cramps or pain. Problems Reviewed?: Yes Consults/Follow Up Additional Follow Up: Yes (Dr Helton in 6 weeks.) Activity Driving Instructions: No Driving for 1 Week Nothing Inside Vagina: No [place] (for 6 weeks.) Diet Discharge Diet: Regular Diet Return to The Hospital For: as below Symptoms to Report to : Bleeding Excessive, Fever Over 101 Degrees F, Vaginal Discharge Foul For Any Problems or Questions: Contact Your Physician OMNA GALLAGHER MD Sep 07, 2022 08:03
[2022-09-07 08:29] VITALS: BP 117/72
[2022-09-07] MEDS: DOCUSATE SODIUM 100 MG (COLACE) CAP PO SCH (08:29)
[2022-09-07 12:00] VITALS: BP 120/69
[2022-09-07 13:50] VITALS: BP 120/69
== END 2022-09-07 13:50 | disposition home or self-care (01) | DRG 807 ==
LOC: LDRP 09:17 → WSo 09:17 → LDRP 09:38 → WSo 09:38 → LDRP 12:45
PROVIDERS: ADMIT Family Medicine; ATTEND Family Medicine
PROC: 10E0XZZ Delivery of Products of Conception, External Approach (ICD-10-PCS; principal; 2022-09-06)
PROC: 0HQ9XZZ Repair Perineum Skin, External Approach (ICD-10-PCS; 2022-09-06)
DX: O77.0 Labor and delivery complicated by meconium in amniotic fluid (principal); Z37.0 Single live birth; Z3A.39 39 weeks gestation of pregnancy; O70.0 First degree perineal laceration during delivery
CPT/HCPCS: 36415; 85025; 86780; 86850; 86900; 86901; 99212

== ENCOUNTER 2022-11-11 22:16 | Emergency (ER) | payer MEDICAID ==
[2022-11-11 22:23] VITALS: BP 138/95
[2022-11-11 23:01] LABS: BASOPHILS % (AUTO) 0 % (0-10); EOSINOPHILS # (AUTO) 0.1 10^3/uL (0.0-0.3); EOSINOPHILS % (AUTO) 1 % (0-10); HEMATOCRIT 38 % (35-52); HEMOGLOBIN 12.1 g/dL (11.5-16.0); LYMPHOCYTES # (AUTO) 3.3 10^3/uL (1.0-4.0); LYMPHOCYTES % (AUTO) 39 % (12-44); MEAN CORPUSCULAR HEMOGLOBIN 25 pg (25-34); MEAN CORPUSCULAR HGB CONC 32 g/dL (32-36); MEAN CORPUSCULAR VOLUME 77 fL (80-99); MEAN PLATELET VOLUME 12.2 fL (9.0-12.2); MONOCYTES # (AUTO) 0.5 10^3/uL (0.0-1.0); MONOCYTES % (AUTO) 6 % (0-12); NEUTROPHILS # (AUTO) 4.7 10^3/uL (1.8-7.8); NEUTROPHILS % (AUTO) 55 % (42-75); PLATELET COUNT 259 10^3/uL (130-400); WHITE BLOOD COUNT 8.5 10^3/uL (4.3-11.0)
--- NOTE | 2022-11-11 23:01 | ED Neurological Problem ---
General Chief Complaint: Upper Extremity Stated Complaint: STROKE SYMPTOMS,L ARM NUMBNESS/PAIN Nursing Triage Note: Pt presents ambulatory to ER with c/o possible stroke. Pt states that she woke up at approx 0400 this morning with severe L arm soreness, numbness and shaking. She states it felt like she had slept on it wrong, but she was not laying on it. Pt reports she fell back asleep afterwards and when she woke up it was normal. Pt was informed it could be stroke like symptoms, and came in. Source: patient Exam Limitations: no limitations History of Present Illness Date Seen by Provider: Nov 11, 2022 Time Seen by Provider: 22:20 Initial Comments This 22-year-old young lady presents to the emergency room with concerns about possible stroke because of pain and numbness in the left upper extremity. Her last known well time was approximately 2300 yesterday, November 10, when she went to bed. She had a headache when she went to bed.. She woke this morning at 04:00 and noticed the pain and numbness in her left arm. Initially there was a heaviness and she had difficulty moving her arm. Her headache had resolved but it eventually returned with lesser intensity and then resolved again. She is free of headache at this time. She has no gross neurologic deficits upon assessment. She reports some minimal pain in the left posterior upper arm with movement and some subtle numbness to touch in the distal left upper extremity. She has had no speech or vision deficits. She ambulates without difficulty. She denies any lower extremity symptoms. She denies any history of prior episodes. She has had no trauma in past or present of the head or neck that would seem contributory. She does have some pain in the upper neck and tenderness to the paraspinous muscles on the left and into the left trapezius region. She did not understand the clinical significance of neurologic deficits when symptoms presented. As she went about her day and talk to others, she became more concerned that she may have had a stroke. She denies any alcohol use. She vapes nicotine and THC. She denies any other drug use. Her primary care provider is Dr. Casillas. She is approximately 2 months . Allergies and Home Medications Allergies Coded Allergies: No Known Drug Allergies (Unverified , 01/13/21) Patient Home Medication List Home Medication List Reviewed: Yes Vit No.124/Iron/FA ( Vitamin Tablet) 1 Each Tablet, 1 EACH PO DAILY, (Reported) Entered as Reported by: PATRICIA KOENIG on 01/13/21 0500 Review of Systems Review of Systems Constitutional: no symptoms reported Eyes: No Symptoms Reported Ears, Nose, Mouth, Throat: no symptoms reported Respiratory: no symptoms reported Cardiovascular: no symptoms reported Gastrointestinal: no symptoms reported Genitourinary: no symptoms reported : No LMP: Sep 15, 2022 Musculoskeletal: no symptoms reported Skin: no symptoms reported Psychiatric/Neurological: See HPI Endocrine: No Symptoms Reported Hematologic/Lymphatic: No Symptoms Reported Past [id number]-Rzpxjq-Fhehwc Hx Patient Social History Tobacco Use?: No Use of E-Cig and/or Vaping dev: Yes E-Cig or Vaping type used: Nicotine, Marijuana Substance use?: Yes Substance type: Marijuana (THC vaping) Alcohol Use?: No Immunizations Up To Date Tetanus Booster (TDap): Less than 5yrs Past Medical History Surgery/Hospitalization HX: of 1st baby Surgeries: No Respiratory: No Cardiac: No Neurological: No : No Reproductive Disorders: No Genitourinary: No Gastrointestinal: No Musculoskeletal: No Endocrine: No HEENT: No Cancer: No Psychosocial: No Integumentary: No Physical Exam Vital Signs Vital Signs - First Documented 11/11/22 22:23 Temp 36.7 Pulse 69 Resp 16 B/P (MAP) 138/95 (109) Capillary Refill : Less Than 3 Seconds Height, Weight, BMI Height: '" Weight: lbs. oz. kg; 27.10 BMI Method: General Appearance: WD/WN, no apparent distress HEENT: PERRL/EOMI, normal ENT inspection Neck: normal inspection, other (Mild tenderness over the superior cervical spine and along the left posterior paraspinous muscles and into the superior trapezius, especially posterior to the left clavicle. 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, alert, normal mood/affect, oriented x 3, sensory deficit (Minimal decrease in sensation of the left upper extremity) Crainal Nerves: normal hearing, normal speech, PERRL, abnormal eye position Coordination/Gait: normal finger to nose (Normal [id number]), normal gait Motor/Sensory: no motor deficit, sensory deficit (Minimal decrease sensation in the left upper extremity) Skin: normal color, warm/dry Stroke NIH Stroke Scale Assessment Select: Initial Level of Consciousness: 0=Alert (0), Level of Consciousness- Questions: 0=Answers both month/age (0), LOC Commands: 0=Performs both tasks (0), Gaze: Normal (0), Visual Sifuentes: 0=No visual loss (0), Facial Movement (Facial Paresis): 0=Normal symmetrical mnt (0), Motor Function-Arms Right: 0=No drift (0), Motor Function-Arms Left: 0=No drift (0), Motor Function-Legs Right: 0=No drift (0), Motor Function-Legs Left: 0=No drift (0), Limb Ataxia: 0=Absent (0), Sensory: 1=Mild to Moderate loss (1), Best Language: 0=No aphasia (0), Dysarthria: 0=Normal (0), Extinction & Inattention: 0=No abnormality (0), Total: 1 Progress/Results/Core Measures Results/Orders Lab Results Laboratory Tests Test 11/11/22 22:17 11/11/22 22:45 11/11/22 22:47 Range/Units Lab Scanned Report LAB Reports [id number] White Blood Count 8.5 4.3-11.0 10^3/uL Red Blood Count 4.92 3.80-5.11 10^6/uL Hemoglobin 12.1 11.5-16.0 g/dL Hematocrit 38 35-52 % Mean Corpuscular Volume 77 L 80-99 fL Mean Corpuscular Hemoglobin 25 25-34 pg Mean Corpuscular Hemoglobin Concent 32 32-36 g/dL Red Cell Distribution Width 19.6 H 10.0-14.5 % Platelet Count 259 130-400 10^3/uL Mean Platelet Volume 12.2 9.0-12.2 fL Immature Granulocyte % (Auto) 0 % Neutrophils (%) (Auto) 55 42-75 % Lymphocytes (%) (Auto) 39 12-44 % Monocytes (%) (Auto) 6 0-12 % Eosinophils (%) (Auto) 1 0-10 % Basophils (%) (Auto) 0 0-10 % Neutrophils # (Auto) 4.7 1.8-7.8 10^3/uL Lymphocytes # (Auto) 3.3 1.0-4.0 10^3/uL Monocytes # (Auto) 0.5 0.0-1.0 10^3/uL Eosinophils # (Auto) 0.1 0.0-0.3 10^3/uL Basophils # (Auto) 0.0 0.0-0.1 10^3/uL Immature Granulocyte # (Auto) 0.0 0.0-0.1 10^3/uL Percent Immature Platelet Fraction 9.7 H 0.0-7.6 % Prothrombin Time 13.2 12.2-14.7 SEC INR Comment 1.0 0.8-1.4 Activated Partial Thromboplast Time 33 24-35 SEC D-Dimer 0.25 0.00-0.49 UG/ML Sodium Level 140 135-145 MMOL/L Potassium Level 3.6 3.6-5.0 MMOL/L Chloride Level 107 98-107 MMOL/L Carbon Dioxide Level 22 21-32 MMOL/L Anion Gap 11 5-14 MMOL/L Blood Urea Nitrogen 11 7-18 MG/DL Creatinine 0.81 0.60-1.30 MG/DL Estimat Glomerular Filtration Rate 104 BUN/Creatinine Ratio 14 Glucose Level 93 70-105 MG/DL Calcium Level 9.4 8.5-10.1 MG/DL Corrected Calcium 9.2 8.5-10.1 MG/DL Total Bilirubin 0.3 0.1-1.0 MG/DL Aspartate Amino Transf (AST/SGOT) 26 5-34 U/L Alanine Aminotransferase (ALT/SGPT) 35 0-55 U/L Alkaline Phosphatase 90 40-136 U/L Troponin I < 0.30 <0.30 NG/ML Total Protein 7.1 6.4-8.2 GM/DL Albumin 4.3 3.2-4.5 GM/DL Serum Test, Qualitative NEGATIVE NEGATIVE Glucometer 84 70-110 MG/DL My Orders Orders - LAILA LOREDO MD Cbc With Automated Diff (11/11/22 22:32) Protime With Inr (11/11/22 22:32) Partial Thromboplastin Time (11/11/22 22:32) Comprehensive Metabolic Panel (11/11/22 22:32) Fibrin Degradation Products (11/11/22 22:32) Troponin I Fs (11/11/22 22:32) Chest 1 View Ap/Pa Only (11/11/22 22:32) Ekg Tracing (11/11/22 22:32) Ed Iv/Invasive Line Start (11/11/22 22:32) Vital Signs Stroke Patient Q15M (11/11/22 22:32) Ct Head/Neck Wo (11/11/22 22:32) O2 (11/11/22 22:32) Intake & Output 06,14,22 (11/11/22 22:32) Monitor-Rhythm Ecg Trace Only (11/11/22:32) Dysphagia Screening Tool Q10MX1 (11/11/22 22:32) Hcg,Qualitative Serum (11/11/22 22:32) Ketorolac Injection (Toradol Injection) (11/11/22 23:52) Vital Signs/I&O 11/11/22:23 Temp 36.7 Pulse 69 Resp 16 B/P (MAP) 138/95 (109) Blood Pressure Mean: 109 [facility]SB[facility] Bedside Testing Finger Stick Blood Glucose: 84 Blood Glucose Action Taken: DR. LOREDO NOTIFIED Progress Progress Note #1: Time: 23:04 Progress Note Patient was interviewed and examined shortly after arrival. She was not a thrombolytic candidate as she was far beyond the exclusion timeframe with last known well time being approximately 23 hours prior to assessment. NIH stroke score was 1 for subtle decrease sensation in the left upper extremity. No other focal deficits were identified. Stroke work-up is underway. Other considerations in the differential would be atypical migraine or cervical radiculopathy. CT of the head and cervical spine are pending. Labs are also pending and will be reviewed fully. EKG was unremarkable by my interpretation. Progress Note #2: Progress Note Stroke work-up was pursued. Patient was not a thrombolytic candidate due to prolonged time since last known well time and low NIH score with improving condition. Labs were obtained and interpreted by me including CBC, CMP, Magnesium, troponin, D-Dimer, and serum HCG. These studies were clinically unremarkable. CT head and neck was obtained and were unremarkable by my interpretation. There were no intracranial hemorrhages, masses, or ischemic changes. No cervical stenosis was appreciated. [facility] report was reviewed and also noted not acute pathology. Case was discussed with Dr. Rabago, stroke neurologist at [facility]. Symptoms seem most likely to be musculoskeletal or radicular in nature. Atypical migraine is also within the differential. Ischem ic stroke or other intracranial pathology is unlikely. Patient received Toradol 30 mg IV and symptoms resolved. I reviewed discharge instructions with the patient and she was discharged in improved condition. Initial ECG Impression Date: Nov 11, 2022 Initial ECG Impression Time: 23:01 Initial ECG Rate: 55 Initial ECG Rhythm: S.Doc Comment Slight sinus bradycardia with variable rate. No ST elevation or depression. No abnormal intervals or axis deviation. Diagnostic Imaging Diagonstic Imaging: Xray Plain Films/CT/US/NM/MRI: chest Comments X-ray of the chest was viewed and interpreted by me. No acute abnormalities appreciated. Diagonstic Imaging: CT Plain Films/CT/US/NM/MRI: c-spine, head Comments CT head and c-spine viewed and interpreted by me. No acute abnormalities were appreciated. [facility] report was also reviewed and no acute abnormalities were noted. Departure Impression Primary Impression: Left arm weakness Additional Impressions: Arm paresthesia, left Acute headache Qualified Codes: R51.9 - Headache, unspecified Disposition: 01 HOME, SELF-CARE Condition: Improved Departure-Patient Inst. Decision time for Depature: 00:22 Referrals: MORGAN CASILLAS MD (PCP/Family) Primary Care Physician Copy Copies To 1: MORGAN CASILLAS MD, JOSHUA T MD Nov 11, 2022 23:01
[2022-11-11] MEDS ORDERED: KETOROLAC 30 MG/ML VIAL ONE (23:52)
[2022-11-12 03:23] LABS: PROTHROMBIN TIME PATIENT 13.2 SEC (12.2-14.7)
[2022-11-12 03:24] LABS: FIBRIN DEGRADATION PRODUCTS 0.25 UG/ML (0.00-0.49); POTASSIUM 3.6 MMOL/L (3.6-5.0); SODIUM 140 MMOL/L (135-145)
[2022-11-12 03:25] LABS: ALANINE AMINOTRANSFERASE 35 U/L (0-55); ALKALINE PHOSPHATASE 90 U/L (40-136); BILIRUBIN,TOTAL 0.3 MG/DL (0.1-1.0); BUN/CREATININE RATIO 14; CALCIUM 9.4 MG/DL (8.5-10.1); CARBON DIOXIDE 22 MMOL/L (21-32); CHLORIDE 107 MMOL/L (98-107); CREATININE SERUM 0.81 MG/DL (0.60-1.30); GFR ESTIMATED 104; GLUCOSE 93 MG/DL (70-105); TOTAL PROTEIN 7.1 GM/DL (6.4-8.2)
[2022-11-12 03:26] LABS: ALBUMIN 4.3 GM/DL (3.2-4.5)
--- NOTE | 2022-11-12 08:01 | Diagnostic Imaging Report ---
INDICATION: left arm weakness. TECHNIQUE: Single view chest 10:53 PM. CORRELATION STUDY: None FINDINGS: The heart size, mediastinal configuration and pulmonary vascularity are within normal limits. The lungs are clear with no consolidating infiltrate. There is no significant effusion or pneumothorax. IMPRESSION: 1. Negative appearing single view chest. Dictated by: Dictated on workstation # [id number]
--- NOTE | 2022-11-12 08:10 | Diagnostic Imaging Report ---
PROCEDURE: CT head and neck without contrast. TECHNIQUE: Contiguous axial images were obtained from the skull base through the vertex. Noncontrast axial images were then obtained of the soft tissue of the neck. Auto Exposure Controls were utilized during the CT exam to meet ALARA standards for radiation dose reduction. INDICATION: Left arm weakness. FINDINGS: CT of the head demonstrates no evidence of an acute intracranial abnormality. There is no evidence of intracranial hemorrhage. There is no intracranial mass effect or shift. There is no hydrocephalus. There is no abnormal extra-axial collection. Still-white matter differentiation well-maintained. There are no findings of edema. No abnormal low density is evident within the basal ganglia or within the kyle. There is no acute calvarial abnormality. The mastoids and the middle ears are clear. The visualized paranasal sinuses are clear. Orbital contents are unremarkable. Alignment of the cervical spine is normal. There is mild reversal of the cervical lordosis. There are normal relationships at the craniocervical junction. Facets are normally aligned. There is no facet joint or disc space widening. Vertebral body heights are well-maintained. There is no fracture or suspicious bone lesion. There is no CT evidence to suggest high-grade canal or foraminal stenosis. Lung apices are clear. Soft tissue of the neck demonstrate no acute process. There is appropriate symmetry of the aerodigestive tract. There are small non-pathologically enlarged cervical chain lymph nodes. IMPRESSION: 1. No CT evidence of an acute intracranial abnormality. 2. No findings of cervical spine fracture or traumatic malalignment. There is no suspicious bone lesion. There are no findings to suggest significant canal or foraminal stenosis. 3. Unremarkable noncontrast appearance of the soft tissues of the neck. Dictated by: Dictated on workstation # [id number]
== END 2022-11-12 01:20 | disposition home or self-care (01) ==
LOC: EDUNIT# 22:16 → ER FS 22:17
DX: R53.1 Weakness (principal); R20.2 Paresthesia of skin; R51.9 Headache, unspecified; F17.290 Nicotine dependence, other tobacco product, uncomplicated
CPT/HCPCS: 36415; 70450; 70490; 71045; 80053; 82947; 84484; 84703; 85025; 85379; 85610; 85730; 93005; 93041